=== PATIENT | female | born 1940 | race Caucasian/White ===

== ENCOUNTER 2022-04-16 00:20 | Emergency (ER) | payer MEDICARE, OTHER ==
[~2022-04-16] VITALS: Ht 162.6 cm; Wt 79.4 kg
--- NOTE | 2022-04-16 00:30 | NUR ---
Patient walked into ER c/o right luz burn from spilling hot oil on her right lower leg 3 days ago. Patient is A/Ox4, not in distress
[2022-04-16] MEDS ORDERED: HYDROCODONE/APAP 5-325MG TABLET ONE (01:58)
[2022-04-16] MEDS ORDERED: BACITRACIN ZINC OINT 15 GM TUBE ONE (01:58)
[2022-04-16] MEDS ORDERED: BACITRACIN ZINC OINT 15 GM TUBE TOP ONE (02:00)
[2022-04-16] MEDS ORDERED: HYDROCODONE/APAP 5-325MG TABLET PO ONE (02:00)
[2022-04-16] MEDS ORDERED: HYDR-4209 PO (02:27)
--- NOTE | 2022-04-16 02:30 | NUR ---
Patient discharged to home in stable condition. Written and verbal after care instructions given. Patient verbalizes understanding of instructions. Stressed follow up or return to ER for worsening s/s. Patient is A/Ox4, not in distress. Patient is accompanied by grand daughter
[2022-04-16 02:48] VITALS: BP 143/67
== END 2022-04-16 02:30 | disposition home or self-care (01) ==
LOC: ER 00:32
DX: T24.201A Burn of second degree of unspecified site of right lower limb, except ankle and foot, initial encounter (principal); X10.2XXA Contact with fats and cooking oils, initial encounter; Y93.89 Activity, other specified; Y92.89 Other specified places as the place of occurrence of the external cause; I10 Essential (primary) hypertension
CPT/HCPCS: A4663